=== PATIENT | female | born 1985 | race Hispanic/Latino ===

== ENCOUNTER 2019-06-08 07:39 | Inpatient (IN) | payer BC, OTHER ==
[~2019-06-08] VITALS: Ht 157.5 cm; Wt 80.0 kg
--- NOTE | 2019-06-09 08:39 | PR ---
[facility] [address] [facility] [place], [place] [address] Signed PP Progress Notes Datetime Report Generated by CPN: 06/09/2019 08:39 SUBJECTIVE: [id number] Pain: Within normal limits Nausea/Vomiting: Denies Flatus: Yes Bowel Movement: No Vital Signs: [id number] Vital Signs: Reviewed EXAM: [id number] Cardiovascular: Normal Respiratory: Normal Abdomen/Uterus: Normal Lochia: Normal Vulva/Perineum: Not Done Breasts: Not Done CVA Tenderness: Normal Extremities: Normal Incision: Not Applicable Progress: Normal Exam Comments: Fundus firm U -2 nontender IMPRESSION/PLAN/PROCEDURES: [id number] Impression: Normal progression Plan: Discharge Progress Notes: Pt seen and examined. Doing well Ambulating, voiding, and tolerating full diet. Pain and lochia minimal. Breast and bottle feeding. Planning pptl for contraception. Desires d/c home. Baby doing well. no concerns. Signing Physician: Rolly Lentz DO Copies: ~ *Electronically Signed* 06/09/19 0839 ROLLY LENTZ DO PATIENT NAME: ELVI GRAJEDA PROGRESS NOTE DATE OF : 89 PHYSICIAN: ROLLY LENTZ DO RPT #: [id number] REPORT IS CONFIDENTIAL AND NOT TO BE RELEASED WITHOUT AUTHORIZATION
== END 2019-06-09 11:50 | disposition home or self-care (01) | DRG 807 ==
LOC: FBCO 07:39 → FBC 08:28
PROVIDERS: ADMIT Obstetrics & Gynecology
PROC: 10E0XZZ Delivery of Products of Conception, External Approach (ICD-10-PCS; principal; 2019-06-08)
PROC: 10907ZC Drainage of Amniotic Fluid, Therapeutic from Products of Conception, Via Natural or Artificial Opening (ICD-10-PCS; 2019-06-08)
DX: O24.420 Gestational diabetes mellitus in childbirth, diet controlled (principal); Z37.0 Single live birth; Z3A.39 39 weeks gestation of pregnancy; O77.0 Labor and delivery complicated by meconium in amniotic fluid; O62.3 Precipitate labor
CPT/HCPCS: 36415; 85027; A9270; J2590; J2795